=== PATIENT | male | born 1965 | race Caucasian/White ===

== ENCOUNTER 2016-12-13 04:29 | Emergency (ER) | payer MEDICAID ==
[~2016-12-13] VITALS: Ht 170.2 cm; Wt 84.5 kg
[2016-12-13 04:38] VITALS: Ht 170.2 cm; Wt 84.5 kg
[2016-12-13] MEDS ORDERED: KETOROLAC 30 MG INJ IV STA (04:55)
[2016-12-13] MEDS ORDERED: IBUP-1542 PO (04:59)
[2016-12-13] MEDS ORDERED: CLIN-73 PO (04:59)
[2016-12-13] MEDS ORDERED: HYDR-906 PO (04:59)
[2016-12-13] MEDS ORDERED: SOD CHLORIDE 0.9% 1,000 ML IV ONE (05:00)
[2016-12-13] MEDS ORDERED: CLINDAMYCIN 600 MG/D5W (PMX) 50 ML IVPB SCH (05:00)
--- NOTE | 2016-12-13 05:27 | ERD ---
ER Documentation Chief Complaint Date/Time DATE: 12/13/16 TIME: 05:22 Chief Complaint RIGHT FACIAL SWELLING/TOOTH; TOOK ADVIL AT 2200 HPI 51-year-old male presents here in emergency department for complaints of right lower mandibular swelling, started with a right lower molar pain yesterday, describes the pain as throbbing pain, 6/10 scale, is worse upon eating, noticed a swelling after few hours. Patient did not have any trauma on affected area. Patient denies any fever or chills. Patient took Advil at home to help with symptoms which helped. ROS All systems reviewed and are negative except as per history of present illness. Medications Home Meds Active Scripts Hydrocodone/Acetaminophen ([place] 5-325 Tablet) 1 Each Tablet, 1 TAB PO Q6H Y for SEVERE PAIN LEVEL 7-10, #20 TAB Prov:PALOMA CHIANG RESIDENTIAL SERVICE TECHNICIAN 12/13/16 Ibuprofen* (Motrin*) 600 Mg Tab, 600 MG PO Q6H Y for PAIN AND OR ELEVATED TEMP, #30 TAB Prov:PALOMA CHIANG NP 12/13/16 Clindamycin Hcl* (Clindamycin Hcl*) 300 Mg Capsule, 300 MG PO TID for 10 Days, CAP Prov:PALOMA CHIANG NP 12/13/16 Allergies Allergies: Coded Allergies: No Known Allergy (Unverified , 12/13/16) PMhx/Soc Medical and Surgical Hx: pt denies Medical Hx, pt denies Surgical Hx FmHx Family History: No coronary disease, No diabetes, No other Physical Exam Vitals Vital Signs Date Time Temp Pulse Resp B/P Pulse Ox O2 Delivery O2 Flow Rate FiO2 12/13/16 05:28 98.7 77 14 124/76 97 Room Air 12/13/16 04:38 97.2 111 16 170/102 98 Physical Exam GENERAL: The patient is well developed and appropriate for usual state of health, in no apparent distress. HEENT: Atraumatic. Ears: Normal tympanic membrane, no erythema or bulging. No ear canal swelling. No ear discharge. Nose: normal nasal turbinates, no erythema or swelling. Normal nasal discharge. Throat: oropharynx clear. No tonsillar swelling or tonsillar exudates. No lymphadenopathy. Noted impacted right lower third molar, noted mild swelling surrounding the right mandibular area, no fluctuance noted, no erythema noted, tender on palpation. CHEST: Clear to auscultation bilaterally. There are no rales, wheezes or rhonchi. HEART: Regular rate and rhythm. No murmurs, clicks, rubs or gallops. No S3 or S4. ABDOMEN: Soft, nontender and nondistended. Good bowel sounds. No rebound or guarding. No gross peritonitis. No gross organomegaly or masses. No Lizama sign or McBurney point tenderness. BACK: No midline or flank tenderness. EXTREMITIES: Equal pulses bilaterally. There is no peripheral clubbing, cyanosis or edema. No focal swelling or erythema. Full range of motion. Grossly neurovascularly intact. NEURO: Alert and oriented. Cranial nerves 2-12 intact. Motor strength in all 4 extremities with 5/5 strength. Sensation grossly intact. Normal speech and gait. SKIN: There is no apparent rash or petechia. The skin is warm and dry. HEMATOLOGIC AND LYMPHATIC: There is no evidence of excessive bruising or lymphedema. No gross cervical, axillary, or inguinal lymphadenopathy. Results 24 hrs Current Medications Medications (Trade) Dose Ordered Sig/Shey Route PRN Reason Start Time Stop Time Status Last Admin Dose Admin Sodium Chloride 1,000 ml @ 1,000 mls/hr Q1H ONCE IV 12/13/16 05:00 12/13/16 05:59 12/13/16 05:22 Clindamycin HCl/ Dextrose (Cleocin 600 Mg/ D5W (Pmx)) 50 ml @ 50 mls/hr ONCE IVPB 12/13/16 05:00 12/13/16 05:59 12/13/16 05:20 Ketorolac Tromethamine (Toradol) 30 mg ONCE STAT IV 12/13/16 04:55 12/13/16 04:56 DC 12/13/16 05:20 IV clindamycin was given a in the emergency department, IV fluids and Toradol, after treatment, verbalized feeling much better. Patient tolerated medication well. Procedures/MDM Medical decision making: Patient's dental pain most likely is from the impacted molar, most likely starting a dental infection. Patient was covered with IV clindamycin here in emergency department, was given pain medications, no symptoms of any abscesses at this time, the symptoms of any sepsis at this time , patient appears well and is hemodynamically stable. radiology exam not indicated at this time. patient is advised to see a dental specialist for further evaluation and possible removal of the impacted molar. patient was given oral clindamycin to continue medication at home, ibuprofen, norco, is advised to follow-up with a dentist within 1-2 days for further evaluation, patient has return to emergency department for any worsening symptoms. DISPOSITION: HOME. STABLE. Departure Diagnosis: Primary Impression: Pain, dental Condition: Stable Patient Instructions: Dental Pain Referrals: [facility] Usted se waed hecho un examen mdico de control que le indica que no est en johny condicin que requiera tratamiento urgente en el Departamento de Emergencia. Un estudio ms profundo y el tratamiento de melchor condicin pueden esperar sin ningn riesgo hasta que usted sea atendida/o en el consultorio de melchor mdico o johny cl blanquita. Es responsabilidad suya arreglar johny mirna para el seguimiento del annette. MANEJO DE CONDICIONES NO URGENTES EN EL FUTURO 1) Si usted tiene un mdico de atencin primaria: Usted debera llamar a melchor mdico de atencin primaria antes de venir al departamento de emergencia. Despus de las horas de consultorio, melchor doctor o melchor asociado/a est disponible por telfono. El mdico o enfermero de lay en el servicio telefnico puede asesorarle por brayden medio para atender el problema, o annette contrario se puede programar johny mirna. 2) Si usted no tiene un mdico de atencin primaria: Llame al mdico o clnica de referencia que aparece abajo tony las horas de consultorio para hacer johny mirna para que le vean. CLINICAS: [facility] [phone] [facility] [place] 732 [phone] [address] [facility] [[email or web address]] [phone] [facility] [phone] [address] [facility]. [facility] 460 [phone] [address] [facility]. [phone] [facility] () Uselijah se wade hecho un examen mdico de control que le indica que no est en johny condicin que requiera tratamiento urgente en el Departamento de Emergencia. Un estudio ms profundo y el tratamiento de melchor condicin pueden esperar sin ningn riesgo hasta que usted sea atendida/o en el consultorio de melchor mdico o johny cl blanquita. Es responsabilidad suya arreglar johny mirna para el seguimiento del annette. MANEJO DE CONDICIONES NO URGENTES EN EL FUTURO 1) Si usted tiene un mdico de atencin primaria: Usted debera llamar a melchor mdico de atencin primaria antes de venir al departamento de emergencia. Despus de las horas de consultorio, melchor doctor o melchor asociado/a est disponible por telfono. El mdico o enfermero de lay en el servicio telefnico puede asesorarle por brayden medio para atender el problema, o annette contrario se puede programar johny mirna. 2) Si usted no tiene un mdico de atencin primaria: Llame al mdico o condado institucions de referencia que aparece abajo tony las horas de consultorio para hacer johny mirna para que le vean. SI USTED NO PUEDE PAGAR PARA WAYNE UN MEDICO puede ir a: [facility] [id number] [place] [address] [facility] [address] [place] [address] [facility] [address] [place] [address] [address] [facility] [address] [place] [address] [facility] DENTIST ([facility] walk in clinic) PALOMA CHIANG NP Dec 13, 2016 05:26
[2016-12-13 05:28] VITALS: BP 124/76; PULSE 77; RESP 14; TEMP 98.7
== END 2016-12-13 06:21 | disposition home or self-care (01) ==
LOC: FTE 04:29
DX: K08.89 Other specified disorders of teeth and supporting structures (principal)
CPT/HCPCS: 96374; 96375; J1885; J7030; Z7502; Z7610